=== PATIENT | female | born 1970 | race Caucasian/White ===

== ENCOUNTER 2020-08-24 15:11 | Inpatient (IN) | payer OTHER ==
[~2020-08-24] VITALS: Ht 172.7 cm; Wt 72.6 kg
--- NOTE | 2020-08-24 16:00 | NUR ---
Dr Ana Zaidi at bedside for MSE.
[2020-08-24 16:06] LABS: HEMATOCRIT 32.8 % (31.2-41.9); MEAN CORPUSCULAR HEMOGLOBIN 18.2 uug (24.7-32.8); MEAN CORPUSCULAR VOLUME 61.2 fL (75.5-95.3); PLATELET COUNT (AUTO) 350 K/uL (179-408)
[2020-08-24 16:14] LABS: CREATININE 0.8 mg/dL (0.6-1.3); POTASSIUM 3.8 mmol/L (3.5-5.1)
--- NOTE | 2020-08-24 16:20 | NUR ---
Dr Ana Zaidi notified of 372 blood sugar per lab, no orders at this time. MD will put in orders, if needed.
[2020-08-24] MEDS ORDERED: CLINDAMYCIN PHOSPHATE IV 600 MG in IV DEXTROSE 5% 100 ML IV ONE (16:45)
[2020-08-24] MEDS ORDERED: CLINDAMYCIN PHOSPHATE 600 MG/4 ML VIAL ONE (17:12)
--- NOTE | 2020-08-24 17:46 | NUR ---
Pt has been cleared for admission by insurance.
--- NOTE | 2020-08-24 17:47 | NUR ---
Dinner provided to patient.
--- NOTE | 2020-08-24 17:58 | NUR ---
EPIC paged for admission panel call, Forest Perez DNP will call back.
--- NOTE | 2020-08-24 18:20 | NUR ---
[facility] accepted patient for admission. 3rd floor charge nurse notified, Room 305 provided. No nurses available at this time. Will endorse to PM shift, and keep patient here for now
--- NOTE | 2020-08-24 18:37 | NUR ---
Belongings accounted for.
--- NOTE | 2020-08-24 18:50 | NUR ---
Pt is resting in bed, no signs of distress. Aware of admission plans. Pending room/nurse availability.
--- NOTE | 2020-08-24 19:03 | NUR ---
Pt resting in stable condition, all orders carried out. Endorsed care to Romana MADRIGAL.
--- NOTE | 2020-08-24 19:05 | NUR ---
Recieved report from KAITLIN Somers for continuity of care. Pt. currently resting in bed, vss.
[2020-08-24] MEDS ORDERED: MAGNESIUM HYDROXIDE 30 ML LIQUID UDC PO PRN (19:45)
[2020-08-24] MEDS ORDERED: ONDANSETRON 4 MG/2 ML VIAL IV PRN (19:45)
[2020-08-24] MEDS ORDERED: DEXTROSE 50% 50 ML DISP.SYRIN IV PRN (19:45)
--- NOTE | 2020-08-24 19:50 | NUR ---
Received admission report from KAITLIN Avendano from ER.
--- NOTE | 2020-08-24 20:30 | NUR ---
Received patient from ER via WC accompanied by Bandar MADRIGAL. Ambulated from the WC to the bed without assistance. Steady gait, repositioned self in bed. Denies any pain/discomforts at this time. Routine admission care done. Plan of care initiated.
--- NOTE | 2020-08-24 20:53 | NUR ---
Arterial doppler at bedside in progress.
[2020-08-24 21:00] VITALS: BP 112/59
[2020-08-24] MEDS ORDERED: VANCOMYCIN IV 1,000 MG in IV DEXTROSE 5% 250 ML IV ONE (21:00)
[2020-08-24] MEDS: BLOOD SUGAR DIAGNOSTIC 1 EACH STRIP VI SCH (22:00)
[2020-08-24] MEDS ORDERED: MEROPENEM 1 G in IV NORMAL SALINE 100 ML IV SCH (22:00)
[2020-08-24] MEDS: IV NS 1000 ML 1,000 ML IV PRN (22:00)
[2020-08-24] MEDS: INSULIN GLARGINE,HUM 300 UNITS/3 ML CARTRIDGE SQ SCH (22:02)
[2020-08-24] MEDS: INSULIN REGULAR, HUMAN 300 UNIT/3 ML VIAL SQ PRN (22:05)
[2020-08-25 04:03] VITALS: BP 107/48
[2020-08-25] MEDS: MEROPENEM 1 G in IV NORMAL SALINE 100 ML IV SCH ×3 (05:39→22:43)
[2020-08-25] MEDS: BLOOD SUGAR DIAGNOSTIC 1 EACH STRIP VI SCH ×4 (06:14→20:38)
[2020-08-25] MEDS: PANTOPRAZOLE SODIUM 40 MG TABLET.DR PO SCH (06:14)
[2020-08-25] MEDS: ACETAMINOPHEN 325 MG TABLET PO PRN (06:16)
--- NOTE | 2020-08-25 06:21 | NUR ---
Shift End Report: VS stable. No s/s of hyperglycemia. Medicated once for headache, Will monitor. All needs attended and met. Denied any pain on right foot 2nd toe cellulitis, elevated with pillow. No s/s of adverse reaction noted from antibiotics IV. Continue IVF as ordered. No significant event reported all night. Continue care as planned.
[2020-08-25 06:22] LABS: HEMATOCRIT 32.1 % (31.2-41.9); MEAN CORPUSCULAR HEMOGLOBIN 18.2 uug (24.7-32.8); MEAN CORPUSCULAR VOLUME 62.5 fL (75.5-95.3); PLATELET COUNT (AUTO) 304 K/uL (179-408)
[2020-08-25 06:49] LABS: BILIRUBIN,TOTAL 0.3 mg/dL (0.2-1.0); CREATININE 0.6 mg/dL (0.6-1.3); MAGNESIUM 1.7 mg/dL (1.8-2.4); PHOSPHOROUS 3.3 mg/dL (2.5-4.9); POTASSIUM 3.3 mmol/L (3.5-5.1); TOTAL PROTEIN, SERUM 6.8 g/dL (6.4-8.2)
[2020-08-25 07:01] LABS: THYROID STIMULATING HORMONE 1.628 mIU/mL (0.358-3.740)
--- NOTE | 2020-08-25 07:45 | NUR ---
Patient received in bed with eyes open, alert and oriented x4. Left AC IV is patent running NS at 75 mL/h as ordered with no redness or swelling noted at this time. Patient states she has no pain or other discomforts at this time. Patient notified of urine sample needed and she expressed understanding, states that she already voided and will notify me when she does void again. Call light and personal belongings within easy reach. Will continue to monitor.
[2020-08-25 08:02] VITALS: BP 121/56
[2020-08-25] MEDS: INSULIN REGULAR, HUMAN 300 UNIT/3 ML VIAL SQ PRN ×4 (08:42→20:54)
[2020-08-25] MEDS: LISINOPRIL 10 MG TABLET PO SCH (08:43)
[2020-08-25] MEDS: VANCOMYCIN IV 1,250 MG in IV DEXTROSE 5% 250 ML IV SCH ×2 (08:43→20:42)
[2020-08-25] MEDS: NICOTINE 7 MG/24HR PATCH TD SCH (08:43)
[2020-08-25] MEDS ORDERED: POTASSIUM CHLORIDE 20 MEQ TAB.PRT.SR PO SCH (09:45)
[2020-08-25] MEDS ORDERED: MAGNESIUM OXIDE 400 MG TABLET PO ONE (09:45)
--- NOTE | 2020-08-25 10:30 | NUR ---
DVT PUMP REFUSED BY PATIENT DUE TO SEVERE PAIN RIGHT SECOND TOE, AND LEFT LE ALSO SENSATIVE.
[2020-08-25 11:20] VITALS: BP 111/58
[2020-08-25 14:43] VITALS: BP 121/47
--- NOTE | 2020-08-25 16:36 | NUR ---
Reminded patient of urine sample that is needed and patient expressed understanding.
--- NOTE | 2020-08-25 19:37 | NUR ---
TEXTED DR. ROMERO FOR MRI APPROVAL
[2020-08-25 20:03] VITALS: BP 115/55
[2020-08-25 20:03] LABS: *URINE HCG, QUAL NEGATIVE (NEGATIVE)
[2020-08-25 20:04] LABS: *BILIRUBIN,URIN NEGATIVE (NEGATIVE); *BLOOD, URINE NEGATIVE (NEGATIVE); *CLARITY,URINE SLIGHTLY CLOUDY (CLEAR); *COLOR,URINE YELLOW (YELLOW); *KETONES,URINE NEGATIVE (NEGATIVE); *UROBILINOGEN,URINE 0.2 E.U./dl (NORMAL); LEUKOCYTE ESTERASE ,URINE NEGATIVE (NEGATIVE); NITRITE, URINE NEGATIVE (NEGATIVE); UGLUCOSE 2+ (NEGATIVE)
[2020-08-25 20:11] LABS: BACTERIA,URINE NONE SEEN /HPF (NONE SEEN); MUCUS,URINE FEW /LPF (0-FEW); RBC,URINE 0-3 /HPF (0-3); SQUAMOUS EPITHELIAL CELL,UR MANY /HPF (NONE SEEN); URINE AMORPHOUS URATE FEW /HPF; WBC,URINE 0-3 /HPF (0-3); YEAST,URINE FEW /HPF (NONE SEEN)
[2020-08-25] MEDS: INSULIN GLARGINE,HUM 300 UNITS/3 ML CARTRIDGE SQ SCH (20:47)
[2020-08-26] MEDS: IV NS 1000 ML 1,000 ML IV PRN (03:33)
[2020-08-26 04:03] VITALS: BP 132/70
--- NOTE | 2020-08-26 05:20 | NUR ---
ambulating to the bathroom ,voiding freely. no complaints of pain
[2020-08-26] MEDS: MEROPENEM 1 G in IV NORMAL SALINE 100 ML IV SCH ×3 (05:39→22:27)
[2020-08-26 05:54] LABS: HEMATOCRIT 31.4 % (31.2-41.9); MEAN CORPUSCULAR HEMOGLOBIN 18.2 uug (24.7-32.8); MEAN CORPUSCULAR VOLUME 60.8 fL (75.5-95.3); PLATELET COUNT (AUTO) 319 K/uL (179-408)
[2020-08-26 06:23] LABS: CREATININE 0.6 mg/dL (0.6-1.3); MAGNESIUM 1.6 mg/dL (1.8-2.4); PHOSPHOROUS 2.9 mg/dL (2.5-4.9); POTASSIUM 3.7 mmol/L (3.5-5.1)
[2020-08-26] MEDS: PANTOPRAZOLE SODIUM 40 MG TABLET.DR PO SCH (06:29)
[2020-08-26] MEDS: BLOOD SUGAR DIAGNOSTIC 1 EACH STRIP VI SCH ×4 (06:40→20:31)
--- NOTE | 2020-08-26 07:55 | NUR ---
report given to the day shift rn that the patient has an ordered surgical boot that needs to be applied to the affected toe,
[2020-08-26 08:00] VITALS: BP 118/70
[2020-08-26] MEDS: LISINOPRIL 10 MG TABLET PO SCH (08:58)
[2020-08-26] MEDS: NICOTINE 7 MG/24HR PATCH TD SCH (08:58)
[2020-08-26] MEDS: VANCOMYCIN IV 1,250 MG in IV DEXTROSE 5% 250 ML IV SCH (09:03)
[2020-08-26] MEDS: INSULIN REGULAR, HUMAN 300 UNIT/3 ML VIAL SQ PRN ×4 (09:08→20:31)
[2020-08-26] MEDS: MAGNESIUM SULFATE/D5W 100 ML IV SCH ×2 (11:43→12:35)
--- NOTE | 2020-08-26 11:50 | NUR ---
Box Feeder note: During morning case management meeting, the IDT team discussed patient's concern about having an autistic child at home while patient is in the hospital. This HEALTH OCCUPATIONS TEACHER followed up with the patient, to assess needs and provide resources for supportive services, as applicable. Patient was sitting in her hospital bed, awake, alert, oriented. Patient presented with a blunted affect, did not maintain eye contact with this HEALTH OCCUPATIONS TEACHER when this HEALTH OCCUPATIONS TEACHER attempted to engage patient in conversation. Patient responded to this HEALTH OCCUPATIONS TEACHER's questions, with short responses and presented irritable. Patient stated that she lives at home with her and 27 year old son, who is autistic. Patient's son is currently being attended to by patient's , while patient is in the hospital. Patient asked this HEALTH OCCUPATIONS TEACHER if patient's son can visit her in the hospital, and this HEALTH OCCUPATIONS TEACHER stated that patient's son can visit as long as the son was accompanied by patient's . Patient responded by saying "no, he's going to drop him off and go to work.......of course he's going to be with him when they visit". Patient's mood remained irritable, however this HEALTH OCCUPATIONS TEACHER just repeated the fact that patient's son can visit as long as he is supervised by patient's . No further SS interventions needed at this time.
[2020-08-26 11:54] VITALS: BP 99/48
[2020-08-26] MEDS ORDERED: SOD FERRIC GLUC COMPLX/SUCROSE 125 MG in IV NORMAL SALINE 100 ML IV SCH (14:00)
[2020-08-26 16:33] VITALS: BP 142/68
[2020-08-26] MEDS: VANCOMYCIN IV 1,000 MG in IV DEXTROSE 5% 250 ML IV SCH (17:03)
--- NOTE | 2020-08-26 19:50 | NUR ---
RECEIVED PATIENT AWAKE IN BED. A/OX4. VERY PLEASANT WHEN APPROACHED. C/O MILD PAIN IN RIGHT FOOT, PATIENT GIVEN TYLENOL 650MG PO PRN FOR PAIN. VS WNL. IVF INFUSING WELL, IV INTACT AND PATENT. CALL LIGHT IN REACH. ALL NEEDS ATTENDED. WILL CONTINUE TO MONITOR AND ASSESS.
[2020-08-26] MEDS: ACETAMINOPHEN 325 MG TABLET PO PRN (19:51)
[2020-08-26 20:00] VITALS: BP 130/56
[2020-08-26] MEDS: INSULIN GLARGINE,HUM 300 UNITS/3 ML CARTRIDGE SQ SCH (20:32)
[2020-08-27] MEDS: IV NS 1000 ML 1,000 ML IV PRN (02:12)
[2020-08-27] MEDS: VANCOMYCIN IV 1,000 MG in IV DEXTROSE 5% 250 ML IV SCH ×2 (02:14→21:24)
[2020-08-27 04:00] VITALS: BP 123/55
[2020-08-27] MEDS: PANTOPRAZOLE SODIUM 40 MG TABLET.DR PO SCH (06:17)
[2020-08-27] MEDS: BLOOD SUGAR DIAGNOSTIC 1 EACH STRIP VI SCH ×4 (06:17→20:36)
[2020-08-27 06:18] LABS: HEMATOCRIT 32.9 % (31.2-41.9); MEAN CORPUSCULAR HEMOGLOBIN 18.4 uug (24.7-32.8); MEAN CORPUSCULAR VOLUME 61.5 fL (75.5-95.3); PLATELET COUNT (AUTO) 352 K/uL (179-408)
[2020-08-27] MEDS: MEROPENEM 1 G in IV NORMAL SALINE 100 ML IV SCH ×2 (06:41→22:59)
--- NOTE | 2020-08-27 06:42 | NUR ---
PATIENT AWAKE IN BED. SLEPT WELL THROUGHOUT THE NIGHT, VSS. IVF INFUSING WELL. CALL LIGHT IN REACH. ALL NEEDS ATTENDED. WILL CONTINUE TO MONITOR AND ASSESS.
[2020-08-27 07:42] LABS: BILIRUBIN,TOTAL 0.2 mg/dL (0.2-1.0); CREATININE 0.6 mg/dL (0.6-1.3); MAGNESIUM 1.9 mg/dL (1.8-2.4); PHOSPHOROUS 2.8 mg/dL (2.5-4.9); POTASSIUM 3.7 mmol/L (3.5-5.1); TOTAL PROTEIN, SERUM 6.9 g/dL (6.4-8.2)
--- NOTE | 2020-08-27 08:30 | NUR ---
Patient in bed, alert and oriented x 4, cooperative upon assessment, on room air saturating at 95%. Patient Left wrist IV site is swollen and slightly warm to touch. Lenny Garg DNP ordered for midline insertion, pharmacy made aware. Called central supply for the surgical shoe of the right toe and left a message. Right toe wound treatment rendered. All needs met promptly. Call light placed within reach. Will continue to monitor.
[2020-08-27] MEDS: INSULIN REGULAR, HUMAN 300 UNIT/3 ML VIAL SQ PRN ×4 (08:43→20:51)
[2020-08-27] MEDS: NICOTINE 7 MG/24HR PATCH TD SCH (08:45)
[2020-08-27] MEDS: LISINOPRIL 10 MG TABLET PO SCH (08:50)
[2020-08-27] MEDS: ACETAMINOPHEN 325 MG TABLET PO PRN (08:57)
[2020-08-27 11:18] VITALS: BP 116/58
[2020-08-27 16:04] VITALS: BP 136/59
[2020-08-27 16:07] VITALS: BP 136/59
[2020-08-27 20:00] VITALS: BP 101/70
[2020-08-27] MEDS: SOD FERRIC GLUC COMPLX/SUCROSE 125 MG in IV NORMAL SALINE 100 ML IV SCH (20:23)
--- NOTE | 2020-08-27 20:23 | NUR ---
Patient alert x4.Denies pain at time.No SOB.Rt foot dressing intact clean and dry.Ambulates to bathroom. Midline insertion done on left upper arm 18 g .No active bleeding noted. Dressing intact. Administered IV ATB as ordered.No a/r noted. Tolerated well. Compliant with medication regimen.Continue safety measures.Call light with in reach.Will continue to monitor.
[2020-08-27 20:29] VITALS: BP 122/56
[2020-08-27] MEDS: INSULIN GLARGINE,HUM 300 UNITS/3 ML CARTRIDGE SQ SCH (20:51)
[2020-08-28] MEDS: VANCOMYCIN IV 1,000 MG in IV DEXTROSE 5% 250 ML IV SCH (04:02)
[2020-08-28] MEDS: HYDROCODONE/APAP 5-325MG TABLET PO PRN ×3 (04:16→20:24)
[2020-08-28 04:30] VITALS: BP 129/62
[2020-08-28 06:03] LABS: CREATININE 0.6 mg/dL (0.6-1.3); POTASSIUM 3.6 mmol/L (3.5-5.1)
[2020-08-28] MEDS: MEROPENEM 1 G in IV NORMAL SALINE 100 ML IV SCH ×3 (06:04→22:16)
[2020-08-28] MEDS: PANTOPRAZOLE SODIUM 40 MG TABLET.DR PO SCH (06:06)
[2020-08-28] MEDS: BLOOD SUGAR DIAGNOSTIC 1 EACH STRIP VI SCH ×4 (06:39→20:14)
[2020-08-28] MEDS: LISINOPRIL 10 MG TABLET PO SCH (08:26)
[2020-08-28] MEDS: NICOTINE 7 MG/24HR PATCH TD SCH (08:26)
[2020-08-28] MEDS: INSULIN REGULAR, HUMAN 300 UNIT/3 ML VIAL SQ PRN ×4 (08:27→20:19)
[2020-08-28] MEDS: ACETAMINOPHEN 325 MG TABLET PO PRN (09:24)
[2020-08-28 11:26] VITALS: BP 112/67
[2020-08-28] MEDS: FLUCONAZOLE 200 MG TABLET PO SCH (12:21)
[2020-08-28] MEDS: VANCOMYCIN IV 1,250 MG in IV DEXTROSE 5% 250 ML IV SCH ×2 (12:21→19:47)
[2020-08-28] MEDS: IV NS 1000 ML 1,000 ML IV PRN (15:09)
[2020-08-28 16:26] VITALS: BP 101/46
[2020-08-28] MEDS: SOD FERRIC GLUC COMPLX/SUCROSE 125 MG in IV NORMAL SALINE 100 ML IV SCH (16:30)
--- NOTE | 2020-08-28 19:30 | NUR ---
RECEIVED PT AWAKE, ALERT AND ORIENTEDX4. PT IN NO ACUTE DISTRESS. IV INTACT. SAFETY AND COMFORT PROVIDED. WILL CONTINUE TO MONITOR.
[2020-08-28] MEDS: INSULIN GLARGINE,HUM 300 UNITS/3 ML CARTRIDGE SQ SCH (20:15)
[2020-08-28 20:18] VITALS: BP 141/60
--- NOTE | 2020-08-28 22:00 | NUR ---
PT GIVEN NORCO 5-325 MG PRN AT 2023H FOR PAIN. PT TOLERATED IT WELL. AFTER AN HOUR PT STATED THE PAIN SUBSIDED. PT STABLE. WILL CONTINUE TO MONITOR.
[2020-08-29] MEDS: VANCOMYCIN IV 1,250 MG in IV DEXTROSE 5% 250 ML IV SCH ×3 (03:10→20:09)
[2020-08-29 04:03] VITALS: BP 136/65
[2020-08-29] MEDS: MEROPENEM 1 G in IV NORMAL SALINE 100 ML IV SCH ×3 (05:06→22:39)
[2020-08-29] MEDS: PANTOPRAZOLE SODIUM 40 MG TABLET.DR PO SCH (06:28)
--- NOTE | 2020-08-29 06:29 | NUR ---
PT IN NO ACUTE DISTRESS. PRESCRIBED MEDICATION GIVEN. SAFETY AND COMFORT PROVIDED. ALL NEEDS ARE MET. PT VITAL SIGNS WITHIN NORMAL LIMIT. WILL ENDORSE TO INCOMING NURSE FOR CONTINUITY OF CARE.
[2020-08-29] MEDS: BLOOD SUGAR DIAGNOSTIC 1 EACH STRIP VI SCH ×4 (06:31→20:19)
[2020-08-29 06:44] LABS: HEMATOCRIT 32.4 % (31.2-41.9); MEAN CORPUSCULAR HEMOGLOBIN 18.7 uug (24.7-32.8); MEAN CORPUSCULAR VOLUME 61.5 fL (75.5-95.3); PLATELET COUNT (AUTO) 367 K/uL (179-408)
[2020-08-29 06:55] LABS: CREATININE 0.7 mg/dL (0.6-1.3); POTASSIUM 3.4 mmol/L (3.5-5.1)
[2020-08-29 07:09] LABS: MAGNESIUM 1.6 mg/dL (1.8-2.4); PHOSPHOROUS 3.5 mg/dL (2.5-4.9)
--- NOTE | 2020-08-29 07:30 | NUR ---
RECEIVED PATIENT IN BED AWAKE ALERT AND ORIENTED WITH IVF IN PROGRESS ORDERED WITH NO S/S OF INFILTERATION PN SITE MID LINE REMAINS INTACT CONTINUE ON IV ATB ORDERED WITH NO ADVERSE OR ALLERGIC REACTIONS AT THIS TIME RIGHT FOOT WITH DRESSING INTACT ORDERED .NO S/S OF HYPO/HYPERGLYCEMIC REACTIONS AT THIS TIME CALL LIGHTS AND PERSONAL BELONGINGS ARE WITHIN EASY REACH MADE COMFORTABLE WILL CONTINUE TO OBSERVE.
[2020-08-29 07:41] VITALS: BP 115/43
[2020-08-29] MEDS: INSULIN REGULAR, HUMAN 300 UNIT/3 ML VIAL SQ PRN ×4 (07:56→20:21)
[2020-08-29] MEDS: LISINOPRIL 10 MG TABLET PO SCH (08:01)
[2020-08-29] MEDS: NICOTINE 7 MG/24HR PATCH TD SCH (08:01)
[2020-08-29] MEDS: ACETAMINOPHEN 325 MG TABLET PO PRN (08:56)
--- NOTE | 2020-08-29 09:00 | NUR ---
PATIENT REQUESTED FOR TYLENOL STATED HAVING A HEADACHE GIVEN ORDERED.WILL CONTINUE TO OBSERVE.
[2020-08-29] MEDS: FLUCONAZOLE 200 MG TABLET PO SCH (09:06)
--- NOTE | 2020-08-29 09:56 | NUR ---
POTASSIUM LEVEL IS 3.4 AND MAG IS 1.6 MD AWARE WITH NEW ORDERS AND NOTED
[2020-08-29] MEDS ORDERED: POTASSIUM CHLORIDE 20 MEQ TAB.PRT.SR PO ONE (10:00)
[2020-08-29] MEDS: MAGNESIUM SULFATE/D5W 100 ML IV SCH ×2 (10:33→11:32)
[2020-08-29 11:13] VITALS: BP 116/47
--- NOTE | 2020-08-29 12:02 | NUR ---
BLOOD SUGAR IS 297 COVERED WITH REGULAR INSULIN PER SLIDING SCALE ORDERED
[2020-08-29 15:25] VITALS: BP 127/58
[2020-08-29] MEDS: SOD FERRIC GLUC COMPLX/SUCROSE 125 MG in IV NORMAL SALINE 100 ML IV SCH (15:26)
--- NOTE | 2020-08-29 18:00 | NUR ---
PATIENT IS FOR SURGERY TOMORROW AT [address] MAY AMPUTATION OF THE RIGHT 2ND TOE PATIENT IS AWARE AND SIGNED THE CONSCENT SHE WAS EDUCATED THAT SHE WILL BE NPO FROM MIDNIGHT TONIGHT AND SHE EXPRESSED UNDERSTANDING
[2020-08-29 20:09] VITALS: BP 128/59
[2020-08-29] MEDS: INSULIN GLARGINE,HUM 300 UNITS/3 ML CARTRIDGE SQ SCH (20:22)
[2020-08-29] MEDS: HYDROCODONE/APAP 5-325MG TABLET PO PRN (20:29)
[2020-08-30] MEDS: VANCOMYCIN IV 1,250 MG in IV DEXTROSE 5% 250 ML IV SCH ×3 (03:53→20:03)
[2020-08-30] MEDS: IV NS 1000 ML 1,000 ML IV PRN ×2 (03:53→22:56)
[2020-08-30 04:09] VITALS: BP 123/96
--- NOTE | 2020-08-30 04:24 | NUR ---
Patient alert x4.c/o 7/10 pain in 2nd toe, administered NORCO PRN, effective. All due medications administered and tolerated well. VSS. Rt foot dressing intact clean and dry. Ambulates to bathroom. Midline intact,V antibiotics infused. Dressing intact. Tolerated well. Safety measures maintained. NPO after midnight. Call light with in reach.Will continue to monitor.
[2020-08-30] MEDS: MEROPENEM 1 G in IV NORMAL SALINE 100 ML IV SCH ×3 (05:51→22:24)
[2020-08-30] MEDS: PANTOPRAZOLE SODIUM 40 MG TABLET.DR PO SCH (05:51)
[2020-08-30] MEDS: BLOOD SUGAR DIAGNOSTIC 1 EACH STRIP VI SCH ×4 (05:54→20:33)
[2020-08-30 07:15] LABS: HEMATOCRIT 31.3 % (31.2-41.9); MEAN CORPUSCULAR HEMOGLOBIN 18.6 uug (24.7-32.8); MEAN CORPUSCULAR VOLUME 61.8 fL (75.5-95.3); PLATELET COUNT (AUTO) 379 K/uL (179-408)
[2020-08-30 07:25] LABS: CARBON DIOXIDE 25 mmol/L (21-32); CHLORIDE 105 mmol/L (98-107); CREATININE 0.5 mg/dL (0.6-1.3); GLUCOSE 200 mg/dL (74-106); MAGNESIUM 1.9 mg/dL (1.8-2.4); PHOSPHOROUS 3.1 mg/dL (2.5-4.9); POTASSIUM 3.6 mmol/L (3.5-5.1); UREA NITROGEN, BLOOD 9 mg/dL (7-18)
[2020-08-30] MEDS: INSULIN REGULAR, HUMAN 300 UNIT/3 ML VIAL SQ PRN ×3 (07:34→20:20)
--- NOTE | 2020-08-30 07:45 | NUR ---
PATIENT IS ALERT AND ORIENTED DENIES DISCOMFORTS SHE IS NOTHING BY MOUTH FOR RIGHT FOOT SURGERY TODAY REEDUCATED AND EXPRESSED UNDERSTANDING ON ROOM AIR WITH NO SHORTNESS OF BREATH IVF IN PROGRESS ORDERED WITH NO S/S OF INFILTERATION ON SITE CALL LIGHTS AND PERSONAL BELONGINGS ARE WITHIN EASY REACH MADE COMFORTABLE WILL CONTINUE TO OBSERVE.
[2020-08-30] MEDS: FLUCONAZOLE 200 MG TABLET PO SCH (08:02)
[2020-08-30] MEDS: LISINOPRIL 10 MG TABLET PO SCH (08:02)
[2020-08-30] MEDS: NICOTINE 7 MG/24HR PATCH TD SCH (08:42)
[2020-08-30] MEDS ORDERED: POLYMYXIN B SULFATE 500,000 UNITS, BACITRACIN 50,000 UNITS, NORMAL SALINE 20 ML MC ONE (09:45)
--- NOTE | 2020-08-30 10:00 | NUR ---
NECKLACE AND ONE RING REMOVED AND KEPT AT THE BEDSIDE BUT ONE OF THE WRINGS ON THE LEFT 4TH FINGER WAS DIFFICULT TO REMOVE SO IT WAS PAPER TAPPED TO HER FINGER.
[2020-08-30] MEDS ORDERED: FENTANYL CITRATE 100 MCG/2 ML AMPUL ONE (10:12)
[2020-08-30] MEDS ORDERED: MIDAZOLAM HCL 2 MG/2 ML VIAL ONE (10:13)
--- NOTE | 2020-08-30 10:15 | NUR ---
PATIENT PICKED UP BY BED TO THE BASEMENT FOR THE SCHEDULED SURGERY OF RIGHT SECOND TOE AMPUTATION.
[2020-08-30] MEDS ORDERED: LIDOCAINE HCL 1% 20 ML VIAL ONE (10:19)
[2020-08-30] MEDS ORDERED: BUPIVACAINE PF 0.5% 30 ML VIAL ONE (10:20)
[2020-08-30] MEDS ORDERED: PROPOFOL 200 MG/20 ML BOTTLE IV ONE (11:38)
[2020-08-30] MEDS ORDERED: METOCLOPRAMIDE HCL 10 MG/2 ML VIAL IV ONE (11:38)
[2020-08-30] MEDS ORDERED: SEVOFLURANE 250 ML BOTTLE IH ONE (11:38)
--- NOTE | 2020-08-30 12:55 | NUR ---
PATIENT RETURNED FROM [facility] BY BED AWAKE ALERT AND ORIENTED DENIES PAIN OR DISCOMFORTS AT THIS TIME ON ROOM AIR WITH NO SHORTNESS OF BREATH MID LINE LEFT UPPER ARM REMAINS INTACT CONNECTED TO HER NORMAL SALINE ORDERED RIGHT FOOT IS WRAPPED WITH BULKY DRESSING CLEAN DRY AND INTACT AT THIS TIME ELEVATED ON THE PILLOW AT THIS TIME LUNCH ORDERED AND PATIENT TOLERATED WELL WITH NO NAUSEA OR VOMITING AT THIS TIME.MADE COMFORTABLE WILL CONTINUE TO OBSERVE.
--- NOTE | 2020-08-30 13:45 | NUR ---
PATIENT ASSISTED INTO THE BATHROOM NON WEIGHT BEARING RIGHT FOOT VOIDED AND ASSISTED BACK INTO BED NO BLEEDING DRESSING IS DRY AND INTACT WILL CONTINUE TO OBSERVE.
[2020-08-30] MEDS: SOD FERRIC GLUC COMPLX/SUCROSE 125 MG in IV NORMAL SALINE 100 ML IV SCH (14:35)
[2020-08-30 16:00] VITALS: BP 123/62
--- NOTE | 2020-08-30 18:00 | NUR ---
RESTING TOLERATED DIET ASSISTED TO THE BATHROOM VOIDING WELL RIGHT FOOT ELEVATED ON THER PILLOW AND ITS C/D/I NOT IN DISTRESS AT THIS TIME.
[2020-08-30] MEDS: HYDROCODONE/APAP 5-325MG TABLET PO PRN (20:13)
[2020-08-30 20:16] VITALS: BP 156/81
[2020-08-30] MEDS: INSULIN GLARGINE,HUM 300 UNITS/3 ML CARTRIDGE SQ SCH (20:19)
[2020-08-31] MEDS: VANCOMYCIN IV 1,250 MG in IV DEXTROSE 5% 250 ML IV SCH ×2 (04:04→12:26)
[2020-08-31 04:53] VITALS: BP 136/63
[2020-08-31 05:43] LABS: HEMATOCRIT 32.9 % (31.2-41.9); MEAN CORPUSCULAR VOLUME 63.1 fL (75.5-95.3); PLATELET COUNT (AUTO) 342 K/uL (179-408)
[2020-08-31 05:48] LABS: CREATININE 0.6 mg/dL (0.6-1.3); MAGNESIUM 1.5 mg/dL (1.8-2.4); PHOSPHOROUS 3.1 mg/dL (2.5-4.9); POTASSIUM 3.6 mmol/L (3.5-5.1)
[2020-08-31] MEDS: MEROPENEM 1 G in IV NORMAL SALINE 100 ML IV SCH ×2 (06:17→14:07)
[2020-08-31] MEDS: PANTOPRAZOLE SODIUM 40 MG TABLET.DR PO SCH (06:17)
[2020-08-31] MEDS: BLOOD SUGAR DIAGNOSTIC 1 EACH STRIP VI SCH ×3 (06:25→16:53)
[2020-08-31] MEDS: LISINOPRIL 10 MG TABLET PO SCH (08:19)
[2020-08-31] MEDS: NICOTINE 7 MG/24HR PATCH TD SCH (08:20)
[2020-08-31] MEDS: INSULIN REGULAR, HUMAN 300 UNIT/3 ML VIAL SQ PRN ×2 (08:22→17:07)
[2020-08-31] MEDS: MAGNESIUM SULFATE/D5W 100 ML IV SCH ×2 (09:55→10:37)
[2020-08-31] MEDS ORDERED: DOXY100C2 PO (13:43)
[2020-08-31] MEDS ORDERED: Insulin Glargine,Hum SQ (13:43)
[2020-08-31] MEDS ORDERED: LISI10TA29 PO (13:43)
[2020-08-31] MEDS ORDERED: METF-442 PO (13:44)
[2020-08-31] MEDS ORDERED: FERR325T23 PO (14:27)
[2020-08-31 16:00] VITALS: BP 130/69
--- NOTE | 2020-08-31 19:00 | NUR ---
Patient discharged home in stable condition. VSS. Able to ambulate. No distress. Verbalized importance to return to a hospital for worsening condition. All belongings with patient. Education provided. Lines removed - wristband removed.
== END 2020-08-31 18:50 | disposition home or self-care (01) | DRG 314 ==
LOC: ER 15:13 → MEDSURG3 20:11
PROVIDERS: ADMIT Hospitalist; ATTEND Registered Nurse
PROC: 0QBQ0ZZ Excision of Right Toe Phalanx, Open Approach (ICD-10-PCS; principal; 2020-08-25)
PROC: 05H633Z Insertion of Infusion Device into Left Subclavian Vein, Percutaneous Approach (ICD-10-PCS; 2020-08-27)
PROC: B547ZZA Ultrasonography of Left Subclavian Vein, Guidance (ICD-10-PCS; 2020-08-27)
PROC: 0Y6R0Z0 Detachment at Right 2nd Toe, Complete, Open Approach (ICD-10-PCS; 2020-08-30)
DX: E11.69 Type 2 diabetes mellitus with other specified complication (principal); E43 Unspecified severe protein-calorie malnutrition; E11.40 Type 2 diabetes mellitus with diabetic neuropathy, unspecified; M86.171 Other acute osteomyelitis, right ankle and foot; E83.42 Hypomagnesemia; L03.115 Cellulitis of right lower limb; E11.65 Type 2 diabetes mellitus with hyperglycemia; E11.621 Type 2 diabetes mellitus with foot ulcer; E11.51 Type 2 diabetes mellitus with diabetic peripheral angiopathy without gangrene; F17.210 Nicotine dependence, cigarettes, uncomplicated; D50.9 Iron deficiency anemia, unspecified; L97.516 Non-pressure chronic ulcer of other part of right foot with bone involvement without evidence of necrosis; E87.6 Hypokalemia; I10 Essential (primary) hypertension; Z71.6 Tobacco abuse counseling; E88.09 Other disorders of plasma-protein metabolism, not elsewhere classified; Z98.891 History of uterine scar from previous surgery; Z91.19 Patient's noncompliance with other medical treatment and regimen; F12.90 Cannabis use, unspecified, uncomplicated; I83.93 Asymptomatic varicose veins of bilateral lower extremities; Z68.24 Body mass index [BMI] 24.0-24.9, adult; B37.49 Other urogenital candidiasis; Z20.822 Contact with and (suspected) exposure to COVID-19; Z79.4 Long term (current) use of insulin; B95.61 Methicillin susceptible Staphylococcus aureus infection as the cause of diseases classified elsewhere; Z83.3 Family history of diabetes mellitus
CPT/HCPCS: 36415; 73630; 83550; 83735; 84100; 84443; 84703; 85025; 85651; 85730; 86140; 87040; 87070; 87075; 87077; 87086; A4649; A4663; A9150; G0378; J1815; J2185; J2250; J2765; J2916; J3010; J3370; J3475; J3490; J7030; J7040; J7060; J7120